=== PATIENT | female | born 1950 | race Caucasian/White ===

== ENCOUNTER → 2017-05-05 | Outpatient (CLI) | payer BC, OTHER ==
--- NOTE | 2017-05-06 13:40 | Diagnostic Imaging Report ---
Thyroid scan and uptake Technique: After the oral administration of 206 ?Ci of I-123 capsule, 4 hour and 24-hour uptake is measured and plantar images over the thyroid gland obtained. Indication: Hyperthyroidism FINDINGS: Thyroid uptake at 4 hours is 49 %, and the at 24 hours is 79 %. Planar images demonstrate no evidence of a cold or hot nodule. IMPRESSION: Marked hyperthyroidism. No focal nodule. Dictated by: Dictated on workstation # [id number]
== END ==
LOC: CARD 10:27
PROVIDERS: ATTEND Family Medicine
DX: E05.90 Thyrotoxicosis, unspecified without thyrotoxic crisis or storm (principal)
CPT/HCPCS: 78014